=== PATIENT | female | born 1950 | race Caucasian/White ===

== ENCOUNTER → 2020-05-10 | Outpatient (CLI) | payer MEDICARE ==
[2020-05-10 15:33] LABS: BILIRUBIN,URINE NEGATIVE (NEGATIVE); CLARITY,URINE CLEAR; COLOR,URINE YELLOW; GLUCOSE, URINE (UA) NEGATIVE (NEGATIVE); KETONES,URINE NEGATIVE (NEGATIVE); LEUKOCYTE ESTERASE ,URINE NEGATIVE (NEGATIVE); NITRITE,URINE NEGATIVE (NEGATIVE); PH,URINE 6.5 (5-9); PROTEIN,URINE NEGATIVE (NEGATIVE)
[2020-05-10 15:44] LABS: BACTERIA,URINE TRACE /HPF; WBC,URINE 0-2 /HPF
== END ==
LOC: LABNPT 15:27
PROVIDERS: ATTEND Family Medicine
DX: R30.0 Dysuria (principal)
CPT/HCPCS: 81000; 87088

== ENCOUNTER → 2020-05-17 | Outpatient (CLI) | payer MEDICARE, OTHER ==
--- NOTE | 2020-05-17 14:42 | Diagnostic Imaging Report ---
INDICATION: 69-year-old female, postmenopausal. Screening for osteoporosis. COMPARISON: None. FINDINGS: AP Spine L1-L4: [BMD (g/cm2): 0.911] [T-Score: -2.4] [Z-Score: -1.2] [BMD Previous: na] [BMD % Change: na] LT Hip Neck: [BMD (g/cm2): 0.831] [T-Score: -1.5] [Z-Score: -0.1] LT Hip Total: [BMD (g/cm2):0.899] [T-Score:-0.9] [Z-Score: 0.2] [BMD Previous: na] [BMD % Change: na] RT Hip Neck: [BMD (g/cm2):0.826] [T-Score:-1.5] [Z-Score:-0.2] RT Hip Total: [BMD (g/cm2):0.861] [T-score:-1.2] [Z-Score:-0.1] [BMD Previous:na] [BMD % Change:na] *Indicates significant change from prior examination based on 95% confidence level. World Health Organization criteria for BMD interpretation classify patients as Normal (T-score at or above -1.0), Osteopenic (T-score between -1.0 and -2.5) or Osteoporotic (T-score at or below -2.5). LIMITATIONS AND MODIFICATION: None. FRACTURE RISK (FRAX SCORE): The ten year probability of (%): Major Osteoporotic Fracture: [16.0] Hip Fracture: [2.1] IMPRESSION: 1. Osteopenia (Low bone mass). 2. Baseline examination. 3. See below National Osteoporosis Foundation guidelines on when to potentially initiate pharmacologic therapy. Based on the National Osteoporosis Foundation Guidelines, pharmacologic treatment should be initiated in any of the following, unless clinical conditions suggest otherwise: * Any patient with prior fragility fracture of the hip or vertebrae. A spine fracture indicates 5X risk for subsequent spine fracture and 2X risk for subsequent hip fracture. * Osteoporosis (T-score <-2.5). * Postmenopausal women and men age 50 and older with low bone mass/osteopenia (T-score between -1.0 and -2.5) by DXA and 10-year major osteoporotic fracture greater than 20% or a 10-year probability of hip fracture greater than 3%. These fracture risks are supplied above in the FRAX score, if applicable. * Clinician judgement and/or patient preferences may indicate treatment for people with 10-year fracture probabilities above or below these levels. Dictated by: Dictated on workstation # [id number]
== END ==
LOC: RAD 08:47 → EDUNIT# 09:00
PROVIDERS: ATTEND Family Medicine
DX: Z13.820 Encounter for screening for osteoporosis (principal); M81.0 Age-related osteoporosis without current pathological fracture; M85.89 Other specified disorders of bone density and structure, multiple sites; Z78.0 Asymptomatic menopausal state
CPT/HCPCS: 77080

== ENCOUNTER 2020-06-02 05:33 | Outpatient (RCR) | payer MEDICARE, OTHER ==
[~2020-06-02] VITALS: Ht 175.3 cm; Wt 77.3 kg
== END 2020-06-02 12:31 | disposition home or self-care (01) ==
LOC: PREOP 05:33
PROVIDERS: ATTEND Surgery
DX: Z01.812 Encounter for preprocedural laboratory examination (principal); Z20.828 Contact with and (suspected) exposure to other viral communicable diseases; Z12.11 Encounter for screening for malignant neoplasm of colon
CPT/HCPCS: 87635

== ENCOUNTER 2020-06-06 07:23 | Day surgery (SDC) | payer MEDICARE, OTHER ==
[~2020-06-06] VITALS: Ht 175.3 cm; Wt 77.3 kg
--- OUTSIDE RECORDS SUMMARY | 2020-06-06 07:27 | XMS REPORT | Clinical Summary ---
Author Author Admin, Nesha Donovan Organization [facility] Address Unknown Phone Unavailable Allergies, Adverse Reactions, Alerts Allergy Name Reaction Description Start Date Severity Status Pr ovider No Known Allergies Divya Elder Conditions or Problems Problem Name Problem Code Onset Date Status Entry Date Provider Comment Standard Description Annotate Kidney stones 592.0 Active Michael Parikh MD Calculus of kidney Cystocele midline 618.01 Active Michael Parikh MD Cystocele, midline Medication List Medication Instructions Start Date Stop Date Generic Name NDC Status Provider Patient Instruction OCUVITE ADULT 50+ ORAL CAPSULE 1 cap by mouth daily MULTIPLE VITAMINS-MINERALS 48841275085 Active Michael Parikh MD Act kadeem CALCIUM 600+D 600-800 MG-UNIT ORAL TABLET 1 tab by mouth daily 2017 CALCIUM CARB-CHOLECALCIFEROL 70042952430 Active Michael Parikh MD Active ASPIRIN 81 MG ORAL TABLET 1 po qd ASPIRIN 71248189063 Active Michael Parikh MD Active Advance Directives Directive Description Start Date PERMISSION TO SHARE Vital Signs Date Name Value Unit Range Description blood pressure, diastolic, repeated by physician 85 BP murphy blood pressure, diastolic 85 mm[Hg] BP murphy blood pressure, systolic, repeated by physician 142 BP sys blood pressure, systolic 142 mm[Hg] BP sys height E&M 69 [in_us] Bdy height pulse rate E&M 63 /min Heart rate temperature E&M 97.9 [degF] Body temp erature weight E&M 169 [lb_av] Weight Measure d blood pressure, diastolic, repeated by physician 70 BP murphy blood pressure, diastolic 70 mm[Hg] BP murphy blood pressure, systolic, repeated by physician 115 BP sys blood pressure, systolic 115 mm[Hg] BP sys height E&M 69 [in_us] Bdy height pulse rate E&M 69 /min Heart rate temperature E&M 97.6 [degF] Body temp erature weight E&M 167 [lb_av] Weight Measure d Diagnostic Results Date Name Value Unit Range Description Office Visit: Kidney stone - Chemistry RBC, urine, dipstick moderate non hemoglyzed Office Visit: Kidney stone - Urinalysis nitrite, urine, semiquantitative negative urobilinogen, urine, semiquantitative (dipstick) 0.2 leukocyte esterase, urine, by dipstick negative appearance, urine clear urine color yellow specific gravity, urine 1.010 pH, urine, semiquantitative 5.0 protein, urine, semiquantitative (dipstick) negative glucose, urine, semiquantitative negative ketones, urine, by test strip negative bilirubin, urine negative Encounters Code Encounter Date Provider Facility CPT-71274 Level 3 New Patient 11:15:47 CDT Michael patel MD [facility] Procedures Code Procedure Name Date Entry Date Standard Desc ription CPT-41728 Postop F/U Visit 14:02:26 CDT CPT-18387 Abdomen, 1 view 10:08:25 CDT
--- OUTSIDE RECORDS SUMMARY | 2020-06-06 07:27 | XMS REPORT | Clinical Summary ---
Author Author Jeannette, Nesha Donovan Organization [facility] Address Unknown Phone Unavailable Allergies, Adverse [...] 1 cap by mouth daily MULTIPLE VITAMINS-MINERALS 19793503517 Active Michael Parikh MD Act kadeem CALCIUM 600+D 600-800 MG-UNIT ORAL TABLET 1 tab by mouth daily 2017 CALCIUM CARB-CHOLECALCIFEROL 70394280599 Active Michael Parikh MD Active ASPIRIN 81 MG ORAL TABLET 1 po qd ASPIRIN 87432274775 Active Michael Parikh MD Active Advance Directives [...] negative Encounters Code Encounter Date Provider Facility CPT-22581 Level 3 New Patient 11:15:47 CDT Michael patel MD [facility] Procedures Code Procedure Name Date Entry Date Standard Desc ription CPT-81318 Postop F/U Visit 14:02:26 CDT CPT-21882 Abdomen, 1 view 10:08:25 CDT
--- OUTSIDE RECORDS SUMMARY | 2020-06-06 07:27 | XMS REPORT | Clinical Summary ---
Author Author Admin, Nesha Donovan Organization [facility] Address Unknown Phone Unavailable Allergies, Adverse Reactions, [...] 1 cap by mouth daily MULTIPLE VITAMINS-MINERALS 87644611879 Active Michael Parikh MD Act kadeem CALCIUM 600+D 600-800 MG-UNIT ORAL TABLET 1 tab by mouth daily 2017 CALCIUM CARB-CHOLECALCIFEROL 07001923989 Active Michael Parikh MD Active ASPIRIN 81 MG ORAL TABLET 1 po qd ASPIRIN 17939968014 Active Michael Parikh MD Active Advance Directives [...] negative Encounters Code Encounter Date Provider Facility CPT-39922 Level 3 New Patient 11:15:47 CDT Michael patel MD [facility] Procedures Code Procedure Name Date Entry Date Standard Desc ription CPT-09145 Postop F/U Visit 14:02:26 CDT CPT-47613 Abdomen, 1 view 10:08:25 CDT
--- OUTSIDE RECORDS SUMMARY | 2020-06-06 07:28 | XMS REPORT | Clinical Summary ---
Author Author Admin, Nesha Donovan Organization [facility] Address Unknown Phone Unavailable Allergies, Adverse Reactions, Alerts Allergy Name Reaction Description Start Date Severity Status Pr ovider No Known Allergies Divya Elder Conditions or Problems Problem Name Problem Code Onset Date Status Entry Date Provider Comment Standard Description Annotate Kidney stones 592.0 Active Michael Parikh MD Calculus of kidney Medication List Medication Instructions Start Date Stop Date Generic Name NDC Status Provider Patient Instruction OCUVITE ADULT 50+ ORAL CAPSULE 1 cap by mouth daily MULTIPLE VITAMINS-MINERALS 19211768160 Active Michael Parikh MD Act kadeem CALCIUM 600+D 600-800 MG-UNIT ORAL TABLET 1 tab by mouth daily 2017 CALCIUM CARB-CHOLECALCIFEROL 29137028432 Active Michael Parikh MD Active ASPIRIN 81 MG ORAL TABLET 1 po qd ASPIRIN 71523815923 Active Michael Parikh MD Active Advance Directives Directive Description Start Date PERMISSION TO SHARE Vital Signs Date Name Value Unit Range Description blood pressure, diastolic, repeated by physician 70 [...] negative Encounters Code Encounter Date Provider Facility CPT-82543 Level 3 New Patient 11:15:47 CDT Michael patel MD [facility]
--- OUTSIDE RECORDS SUMMARY | 2020-06-06 07:28 | XMS REPORT | Clinical Summary ---
Author Author Jeannette, Nesha Donovan Organization [facility] Address Unknown Phone Unavailable Allergies, Adverse [...] 1 cap by mouth daily MULTIPLE VITAMINS-MINERALS 95895169023 Active Michael Parikh MD Act kadeem CALCIUM 600+D 600-800 MG-UNIT ORAL TABLET 1 tab by mouth daily 2017 CALCIUM CARB-CHOLECALCIFEROL 05923024147 Active Michael Parikh MD Active ASPIRIN 81 MG ORAL TABLET 1 po qd ASPIRIN 40137960730 Active Michael Parikh MD Active Advance Directives Directive Description Start Date PERMISSION TO SHARE Vital Signs Date Name Value Unit Range Description blood pressure, diastolic, repeated by physician 85 BP murpyh blood pressure, diastolic 85 mm[Hg] BP murphy [...] negative Encounters Code Encounter Date Provider Facility CPT-70367 Level 3 New Patient 11:15:47 CDT Michael patel MD [facility] Procedures Code Procedure Name Date Entry Date Standard Desc ription CPT-38188 Postop F/U Visit 14:02:26 CDT CPT-94268 Abdomen, 1 view 10:08:25 CDT
--- OUTSIDE RECORDS SUMMARY | 2020-06-06 07:28 | XMS REPORT | Clinical Summary ---
Author Author Admin, Nesha Donovan Organization [facility] Address Unknown Phone Unavailable Allergies, [...] 1 cap by mouth daily MULTIPLE VITAMINS-MINERALS 34600096953 Active Michael Parikh MD Act kadeem CALCIUM 600+D 600-800 MG-UNIT ORAL TABLET 1 tab by mouth daily 2017 CALCIUM CARB-CHOLECALCIFEROL 95089846233 Active Michael Parikh MD Active ASPIRIN 81 MG ORAL TABLET 1 po qd ASPIRIN 64342409306 Active Michael Parikh MD Active Advance Directives [...] negative Encounters Code Encounter Date Provider Facility CPT-78986 Level 3 New Patient 11:15:47 CDT Michael patel MD [facility] Procedures Code Procedure Name Date Entry Date Standard Desc ription CPT-68478 Postop F/U Visit 14:02:26 CDT CPT-17185 Abdomen, 1 view 10:08:25 CDT
--- OUTSIDE RECORDS SUMMARY | 2020-06-06 07:28 | XMS REPORT | Continuity of Care Document ---
Author Organization Unknown Address Unknown Phone Unavailable Allergies Active Description Code Type Severity Reaction Onset Reported/Identified Relationship to Patient Clinical Status Yes No Known Medication Allergies Drug N/A N/A Yes No Known Drug Allergies [id number] Drug Allergy Unknown N/A 05/31/2020 Medications There is no data. Problems Date Dx Coded Attending Type Code Diagnosis Diagnosed By 04/18/2018 Michael Levy MD N2 0.0 Kidney stones 05/08/2018 Michael Levy MD N81.10 Cystocele midline 05/10/2020 SUN EDEN MD, Ot M81 .0 AGE-RELATED OSTEOPOROSIS W/O CURRENT PAT 05/11/2020 SUN EDEN MD, Ot R30 .0 DYSURIA 05/17/2020 SUN EDEN MD, Ot M81 .0 AGE-RELATED OSTEOPOROSIS W/O CURRENT PAT 05/17/2020 SUN EDEN MD, Ot M81 .0 AGE-RELATED OSTEOPOROSIS W/O CURRENT PAT 05/17/2020 SUN EDEN MD, Ot M81 .0 AGE-RELATED OSTEOPOROSIS W/O CURRENT PAT 05/18/2020 SUN EDEN MD, Ot M81 .0 AGE-RELATED OSTEOPOROSIS W/O CURRENT PAT 05/19/2020 SUN EDEN MD Ot M81 .0 AGE-RELATED OSTEOPOROSIS W/O CURRENT PAT 05/19/2020 SUN EDEN MD, Ot M85.89 OTH DISRD OF BONE DENSITY AND STRUCTURE, 05/19/2020 SUN EDEN MD Ot Z13.820 ENCOUNTER FOR SCREENING FOR OSTEOPOROSIS 05/19/2020 SUN EDEN MD Ot Z78 .0 ASYMPTOMATIC MENOPAUSAL STATE 05/30/2020 SUN EDEN MD Ot R30 .0 DYSURIA 05/31/2020 SUN EDEN MD, Ot M81 .0 AGE-RELATED OSTEOPOROSIS W/O CURRENT PAT 05/31/2020 SUN EDEN MD, Ot M85.89 OTH DISRD OF BONE DENSITY AND STRUCTURE, 05/31/2020 EDEN MDSUN Ot Z13.820 ENCOUNTER FOR SCREENING FOR OSTEOPOROSIS 05/31/2020 EDEN MDSUN Ot Z78 .0 ASYMPTOMATIC MENOPAUSAL STATE 05/31/2020 EDEN MDSUN Ot M81 .0 AGE-RELATED OSTEOPOROSIS W/O CURRENT PAT 05/31/2020 KAREY MORALESSUN Ot M85.89 OTH DISRD OF BONE DENSITY AND STRUCTURE, 05/31/2020 EDEN MDSUN Ot Z13.820 ENCOUNTER FOR SCREENING FOR OSTEOPOROSIS 05/31/2020 EDEN MDSUN Ot Z78 .0 ASYMPTOMATIC MENOPAUSAL STATE 06/03/2020 KAREY MORALESSUN Ot R30 .0 DYSURIA Procedures There is no data. Results Test Result Range Complete urinalysis with reflex to cultu re - 05/10/20 13:45 Urine color determination YELLOW NRG Urine clarity determination CLEAR NR G Urine pH measurement by test strip 6.5 5-9 Specific gravity of urine by test strip 1.025 1.016-1.022 Urine protein assay by test strip, semi-quantitative NEGATIVE NEGATIVE Urine glucose detection by automated test strip NE GATIVE NEGATIVE Erythrocytes detection in urine sediment by light micr oscopy 1+ NEGATIVE Urine ketones detection by automated test strip NE GATIVE NEGATIVE Urine nitrite detection by test strip NEGATIVE NEGATIVE Urine total bilirubin detection by test strip NEGA TIVE NEGATIVE Urine urobilinogen measurement by automated test strip (mass/volume) 1.0 mg/dL < = 1.0 Urine leukocyte esterase detection by dipstick NEG ATIVE NEGATIVE Automated urine sediment erythrocyte cou nt by microscopy (number/high power field) [HPF] NRG Automated urine sediment leukocyte count by microscopy (number/high power field) [HPF] NRG Bacteria detection in urine sediment by light microsco py TRACE NRG Squamous epithelial cells detection in u rine sediment by light microscopy 2-5 NRG Crystals detection in urine sediment by light microsco py NONE NRG Casts detection in urine sediment by light microscopy NONE NRG Mucus detection in urine sediment by light microscopy NEGATIVE NRG Complete urinalysis with reflex to culture YES NRG Bacterial urine culture - 05/10/20 13:45 Bacterial urine culture 3 OR MORE NRG COLONY COUNT 40,000 CFU/ML NRG SUSCEPTIBILITY GRAM POSITIVES, SUGGESTING PROBABLE NRG MRSA SCREEN COLLECTION CONTAMINATION WITH SKIN JENIFER RA NRG RAPID ID NO SUSCEPTIBILITY PERFORMED N RG Encounters ACCT No. Visit Date/Time Discharge Status Pt. Type Provider Facility Loc./Unit Complaint [id number] 06/19/2019 13:30:00 06/19/2019 23:59: 59 [facility] [id number] 06/02/2020 05:33:00 12:31:00 DIS Outpatient LYNDSAY SANTOS DO [facility] PREOP COLONOSCOPY [id number] 05/17/2020 08:47:00 23:59:59 CLS Outpatient SUN EDEN MD [facility] RAD OSTEOPOROSIS WO FRACTUR E [id number] 05/10/2020 15:27:00 23:59:59 CLS Outpatient SUN EDEN MD [facility] LABNPT DYSURIA [id number] 06/06/2020 08:30:00 P EN Preadmit LYNDSAY SANTOS DO [facility] ENDO SCREENING [id number] 05/10/2020 14:12:00 ACT Unknown Michael Levy MD [id number] 04/18/2018 10:35:26 8 23:59:59 CLS Preadmit PAIGE LEVY [facility] BAL Surgery OPS [id number] 05/23/2020 16:56:06 Document Registration
--- OUTSIDE RECORDS SUMMARY | 2020-06-06 07:28 | XMS REPORT | Clinical Summary ---
Author Author Admin, Nesha Donovan Organization [facility] Address Unknown Phone Unavailable Allergies, [...] 1 cap by mouth daily MULTIPLE VITAMINS-MINERALS 37388768123 Active Michael Parikh MD Act kadeem CALCIUM 600+D 600-800 MG-UNIT ORAL TABLET 1 tab by mouth daily 2017 CALCIUM CARB-CHOLECALCIFEROL 40648547013 Active Michael Parikh MD Active ASPIRIN 81 MG ORAL TABLET 1 po qd ASPIRIN 60896604271 Active Michael Parikh MD Active Advance Directives [...] negative Encounters Code Encounter Date Provider Facility CPT-41373 Level 3 New Patient 11:15:47 CDT Michael patel MD [facility]
--- OUTSIDE RECORDS SUMMARY | 2020-06-06 07:28 | XMS REPORT | Clinical Summary ---
Author Author Jeannette, Nesha Donovan Organization [facility] Address Unknown Phone Unavailable Allergies, Adverse Reactions, [...] 1 cap by mouth daily MULTIPLE VITAMINS-MINERALS 40527404781 Active Michael Parikh MD Act kadeem CALCIUM 600+D 600-800 MG-UNIT ORAL TABLET 1 tab by mouth daily 2017 CALCIUM CARB-CHOLECALCIFEROL 22155580962 Active Michael Parikh MD Active ASPIRIN 81 MG ORAL TABLET 1 po qd ASPIRIN 41715883982 Active Michael Parikh MD Active Advance Directives [...] negative Encounters Code Encounter Date Provider Facility CPT-04330 Level 3 New Patient 11:15:47 CDT Michael patel MD [facility] Procedures Code Procedure Name Date Entry Date Standard Desc ription CPT-90692 Postop F/U Visit 14:02:26 CDT CPT-60915 Abdomen, 1 view 10:08:25 CDT
--- OUTSIDE RECORDS SUMMARY | 2020-06-06 07:28 | XMS REPORT | Clinical Summary ---
Author Author Jeannette, Nesha Donovan Organization [facility] Address Unknown Phone Unavailable Allergies, Adverse Reactions, [...] 1 cap by mouth daily MULTIPLE VITAMINS-MINERALS 90706037994 Active Michael Parikh MD Act kadeem CALCIUM 600+D 600-800 MG-UNIT ORAL TABLET 1 tab by mouth daily 2017 CALCIUM CARB-CHOLECALCIFEROL 77952095084 Active Michael Parikh MD Active ASPIRIN 81 MG ORAL TABLET 1 po qd ASPIRIN 55892605832 Active Michael Parikh MD Active Advance Directives [...] negative Encounters Code Encounter Date Provider Facility CPT-36034 Level 3 New Patient 11:15:47 CDT J Abdifatah patel MD [facility] Procedures Code Procedure Name Date Entry Date Standard Desc ription CPT-09398 Postop F/U Visit 14:02:26 CDT CPT-81890 Abdomen, 1 view 10:08:25 CDT
--- OUTSIDE RECORDS SUMMARY | 2020-06-06 07:28 | XMS REPORT | Clinical Summary ---
[...] 1 cap by mouth daily MULTIPLE VITAMINS-MINERALS 21955794200 Active Michael Parikh MD Act kadeem CALCIUM 600+D 600-800 MG-UNIT ORAL TABLET 1 tab by mouth daily 2017 CALCIUM CARB-CHOLECALCIFEROL 78954859021 Active Michael Parikh MD Active ASPIRIN 81 MG ORAL TABLET 1 po qd ASPIRIN 54568502541 Active Michael Parikh MD Active Advance Directives [...] negative Encounters Code Encounter Date Provider Facility CPT-24718 Level 3 New Patient 11:15:47 CDT Michael patel MD [facility]
--- OUTSIDE RECORDS SUMMARY | 2020-06-06 07:28 | XMS REPORT | Clinical Summary ---
Author Author Admin, Nesha Donovan Organization [facility] Address Unknown Phone Unavailable Allergies, [...] 1 cap by mouth daily MULTIPLE VITAMINS-MINERALS 73036728580 Active Michael Parikh MD Act kadeem CALCIUM 600+D 600-800 MG-UNIT ORAL TABLET 1 tab by mouth daily 2017 CALCIUM CARB-CHOLECALCIFEROL 66768893141 Active Michael Parikh MD Active ASPIRIN 81 MG ORAL TABLET 1 po qd ASPIRIN 21962302350 Active Michael Parikh MD Active Advance Directives [...] negative Encounters Code Encounter Date Provider Facility CPT-49720 Level 3 New Patient 11:15:47 CDT J Abdifatah patel MD [facility] Procedures Code Procedure Name Date Entry Date Standard Desc ription CPT-29131 Postop F/U Visit 14:02:26 CDT CPT-72069 Abdomen, 1 view 10:08:25 CDT
--- OUTSIDE RECORDS SUMMARY | 2020-06-06 07:28 | XMS REPORT | Clinical Summary ---
Author Author Admin, Nesha Donovan Organization [facility] Address Unknown Phone Unavailable Allergies, Adverse [...] 1 cap by mouth daily MULTIPLE VITAMINS-MINERALS 20126569032 Active Michael Parikh MD Act kadeem CALCIUM 600+D 600-800 MG-UNIT ORAL TABLET 1 tab by mouth daily 2017 CALCIUM CARB-CHOLECALCIFEROL 98868444788 Active Michael Parikh MD Active ASPIRIN 81 MG ORAL TABLET 1 po qd ASPIRIN 27593449102 Active Michael Parikh MD Active Advance Directives [...] negative Encounters Code Encounter Date Provider Facility CPT-21082 Level 3 New Patient 11:15:47 CDT J Abdifatah patel MD [facility] Procedures Code Procedure Name Date Entry Date Standard Desc ription CPT-64165 Abdomen, 1 view 10:08:25 CDT
--- OUTSIDE RECORDS SUMMARY | 2020-06-06 07:28 | XMS REPORT | Clinical Summary ---
Author Author Admin, Nesha Donovan Organization [facility] Address Unknown Phone Unavailable Allergies, Adverse [...] 1 cap by mouth daily MULTIPLE VITAMINS-MINERALS 54882476645 Active Michael Parikh MD Act kadeem CALCIUM 600+D 600-800 MG-UNIT ORAL TABLET 1 tab by mouth daily 2017 CALCIUM CARB-CHOLECALCIFEROL 49027452232 Active Michael Parikh MD Active ASPIRIN 81 MG ORAL TABLET 1 po qd ASPIRIN 67087518629 Active Michael Parikh MD Active Advance Directives [...] negative Encounters Code Encounter Date Provider Facility CPT-30660 Level 3 New Patient 11:15:47 CDT J Abdifatah patel MD [facility] Procedures Code Procedure Name Date Entry Date Standard Desc ription CPT-54484 Postop F/U Visit 14:02:26 CDT CPT-60238 Abdomen, 1 view 10:08:25 CDT
--- OUTSIDE RECORDS SUMMARY | 2020-06-06 07:28 | XMS REPORT | Clinical Summary ---
Author Author Admin, Nesha Donovan Organization [facility] Address Unknown Phone Unavailable Allergies, Adverse [...] 1 cap by mouth daily MULTIPLE VITAMINS-MINERALS 22698077215 Active Michael Parikh MD Act kadeem CALCIUM 600+D 600-800 MG-UNIT ORAL TABLET 1 tab by mouth daily 2017 CALCIUM CARB-CHOLECALCIFEROL 45791658172 Active Michael Parkih MD Active ASPIRIN 81 MG ORAL TABLET 1 po qd ASPIRIN 17704652433 Active Michael Parikh MD Active Advance Directives [...] negative Encounters Code Encounter Date Provider Facility CPT-40920 Level 3 New Patient 11:15:47 CDT J Abdifatah patel MD [facility] Procedures Code Procedure Name Date Entry Date Standard Desc ription CPT-98227 Postop F/U Visit 14:02:26 CDT CPT-35800 Abdomen, 1 view 10:08:25 CDT
[2020-06-06] MEDS ORDERED: LACTATED RINGERS 1,000 ML IV ONE ×2 (07:43→09:08)
[2020-06-06] MEDS ORDERED: LACTATED RINGERS 1,000 ML IV STA (07:48)
[2020-06-06] MEDS ORDERED: PROPOFOL INJECTION 50 ML IV ONE ×2 (07:53→09:50)
[2020-06-06] MEDS ORDERED: MIDAZOLAM 2 MG/2 ML (VERSED) VIAL ONE (07:53)
[2020-06-06 07:55] VITALS: BP 122/81
--- NOTE | 2020-06-06 08:10 | Progress Note-Pre Operative ---
Pre-Operative Progress Note H&P Reviewed The H&P was reviewed, patient examined and no changes noted. Time Seen by Provider: 08:02 Date H&P Reviewed: Jun 06, 2020 Time H&P Reviewed: 08:01 Pre-Operative Diagnosis: Screening Colonoscopy LYNDSAY SANTOS DO Jun 06, 2020 08:10
[2020-06-06] MEDS ORDERED: EPINEPHrine INJECTION 1 MG/ML AMP ONE (09:38)
--- NOTE | 2020-06-06 10:00 | Progress Note-Post Operative ---
Post-Operative Progess Note Surgeon (s)/Gaggerman (s) Surgeon LYNDSAY SANTOS DO Gaggerman: none Pre-Operative Diagnosis Screening Colonoscopy Post-Operative Diagnosis Polyp Diverticula Int hemorrhoids Procedure & Operative Findings Date of Procedure 06/06/20 Procedure Performed/Findings Colon with snare Anesthesia Type IV sedation by ASPHALT BLENDER Estimated Blood Loss Estimated blood loss (mL): scant Specimens/Packing Specimens Removed sigmoid polyp LYNDSAY SANTOS DO Jun 06, 2020 10:00
--- NOTE | 2020-06-06 10:01 | Endoscopy Discharge Instruct ---
Endo Procedure/Findings Findings 1.: Polyp 2.: Diverticulosis 3.: Internal Hemorrhoids Discharge Instructions - Activity: You might feel a little sleepy until tomorrow. This is due to the medicine you received to relax you. Until tomorrow, you should: NOT drive a car, operate machinery or power tools. NOT drink any alcoholic beverages. NOT make any important decisions or sign importortant papers. Do not return to work until tomorrow, unless otherwise instructed. Resume previous activities tomorrow. Diet: Start by taking liquids. If you tolerate liquids, advance to solid food. make an appointnment for one week 1.: Colonscopy in 5 years Notify Physician - If you experience excessive bleeding, unusual abdominal pain, fever, or chest pain, contact your doctor immediately. LYNDSAY SANTOS DO Jun 06, 2020 10:01
[2020-06-06 10:05] VITALS: BP 114/65
[2020-06-06] MEDS ORDERED: ONDANSETRON 4 MG/2 ML (SDV) Z0FRAN IVP ONE (10:07)
[2020-06-06] MEDS ORDERED: ONDANSETRON 4 MG/2 ML (SDV) Z0FRAN ONE (10:09)
[2020-06-06 10:10] VITALS: BP 148/80
[2020-06-06 10:15] VITALS: BP 148/80
[2020-06-06 10:45] VITALS: BP 136/74
[2020-06-06 11:20] VITALS: BP 136/74
--- NOTE | 2020-06-06 23:15 | OPERATIVE REPORT ---
DATE OF SERVICE: 06/06/2020 PREOPERATIVE DIAGNOSIS: Screening colonoscopy. POSTOPERATIVE DIAGNOSES: Colon polyps, diverticula, internal hemorrhoids. PROCEDURE: Colonoscopy with snare polypectomy. SURGEON: Evelio Santiago DO UTILITY SPECIALIST: None. ANESTHESIA: IV sedation by the FABRICATION WELDER. SPECIMEN: Sigmoid polyp. BLOOD LOSS: Scant. FLUIDS: Per anesthesia. POSTOPERATIVE CONDITION: Stable. INDICATION FOR PROCEDURE: The patient is a 69-year-old female who has never had a colonoscopy, needs one for screening. FINDINGS: The patient had a flat polyp in the sigmoid colon. She had some diverticula and some internal hemorrhoids. PROCEDURE NOTE: After informed consent was obtained, the patient was brought to the endoscopy suite, placed in bed in left lateral decubitus position. She was administered IV sedation by the FABRICATION WELDER who then monitored her vitals the entire time, heart rate, blood pressure and pulse ox and the scope was inserted all the way to about 150 cm, on the way in noted some diverticula, took a picture of this, able to get to the cecum, took a picture of appendiceal orifice and then noted ileocecal valve, then slowly withdrew the scope insufflating to look circumferentially at the min looking the cecum, up the ascending colon to the hepatic flexure, then down the transverse colon to the splenic flexure, into the descending colon and then down the sigmoid. In the sigmoid, saw a flat polyp, took a picture of this and then did snare polypectomy and then continued down in the rectum, retroflexed in rectal vault, saw some minimal internal hemorrhoids, took a picture of this and then removed the scope. The patient tolerated the procedure. She was recovered in endoscopy suite. Job ID: [id number] DocumentID: [id number] Dictated Date: 06/06/2020 22:31:31 Screw Machine Adjuster Automatic Date: 06/06/2020 23:14:28 Dictated By: EVELIO SANTIAGO DO
== END 2020-06-06 11:20 | disposition home or self-care (01) ==
LOC: ENDO 07:23
PROVIDERS: ATTEND Surgery
DX: Z12.11 Encounter for screening for malignant neoplasm of colon (principal); K63.5 Polyp of colon; K57.30 Diverticulosis of large intestine without perforation or abscess without bleeding; K64.8 Other hemorrhoids; Z79.82 Long term (current) use of aspirin; Z79.899 Other long term (current) drug therapy; Z90.710 Acquired absence of both cervix and uterus; Z80.3 Family history of malignant neoplasm of breast

== ENCOUNTER → 2022-09-21 | Outpatient (CLI) | payer MEDICARE, OTHER ==
--- NOTE | 2022-09-21 14:26 | Diagnostic Imaging Report ---
INDICATION: Kidney stones. TIME OF EXAM: 10:38 a.m. No prior studies are available for comparison. FINDINGS: Punctate densities overlie the lower pole of the left kidney, suspicious for calculi. No definite calculi are seen overlying the right renal shadow. No definite calculi along the expected course of the ureters are seen. Bowel gas pattern is unremarkable. IMPRESSION: Questionable punctate left renal calculi. No other significant abnormality is detected. Dictated by: Dictated on workstation # [id number]
== END ==
LOC: RAD FS 10:11
PROVIDERS: ATTEND Urology
DX: Z87.442 Personal history of urinary calculi (principal)
CPT/HCPCS: 74018